=== PATIENT | male | born 1955 | race African-American/Black ===

== ENCOUNTER 2017-01-24 17:26 | Emergency (ER) | payer BC ==
[~2017-01-24 17:26] MED LIST: ASABAYER PO; AVODART PO; DENIES HOME MEDS; FLOMAX4 PO; GLUCPH PO; LEVAQUIN5T PO; MICRONASE2.5 MG PO; PRIN20 PO; PYR200 PO; ROXICET1 TAB PO
[2017-01-24 17:50] LABS: BASOPHILS 0.1 %; BASOPHILS ABSOLUTE 0.01 10/3/uL (0.0-0.16); EOSINOPHILS 0.1 %; EOSINOPHILS ABSOLUTE 0.01 10/3/uL (0.0-0.53); HEMATOCRIT 40.5 % (40.0-51.0); HEMOGLOBIN 14.2 g/dL (13.6-17.8); IMMATURE GRANULOCYTES 0.2 %; IMMATURE GRANULOCYTES ABSOLUTE 0.02 10/3/uL (0.0-0.11); LYMPHOCYTES 12.1 %; MEAN CORPUSCULAR HEMOGLOB 31.8 pg (26.0-34.0); MEAN CORPUSCULAR VOLUME 90.8 fL (80-100); MEAN PLATELET VOLUME 10.1 fL (9.2-13.0); MONOCYTES 5.4 %; MONOCYTES ABSOLUTE 0.49 10/3/uL (0.21-1.20); NEUTROPHILS 82.1 %; NEUTROPHILS ABSOLUTE 7.46 10/3/uL (2.02-8.40); PLATELET COUNT 279 10/3/uL (150-400); RBC DISTRIBUTION WIDTH 13.7 % (12.0-16.0); RED CELL COUNT 4.46 10/6/uL (4.7-6.1)
[2017-01-24 17:52] LABS: ER CBC TAT 0 Hrs 10 Mins; MANUAL DIFF NO %; MEAN CORPUS HGB CONC 35.1 g/dL (32.0-36.0); WHITE BLOOD CELLS 9.1 10/3/uL (4.5-10.5)
[2017-01-24 18:06] LABS: A/G RATIO 1.3 (0.7-1.9); ALBUMIN 4.1 G/DL (3.5-5.0); BUN (BLOOD UREA NITROGEN) 13 MG/DL (6-23); CALCIUM, SERUM 8.9 MG/DL (8.5-10.4); CHLORIDE, SERUM 105 MMOL/L (96-112); CO2 (CARBON DIOXIDE) 25 MMOL/L (24-34); CREATININE 1.08 MG/DL (0.70-1.30); GFR AFRICAN AMERICAN 84 ML/MIN (>=60); GFR NON AFRICAN AMERICAN 73 ML/MIN (>=60); GLOBULIN 3.1 G/DL (2.5-4.1); POTASSIUM, SERUM 3.9 MMOL/L (3.5-5.3); SGOT(AST) 9 U/L (5-40); SGPT(ALT) 23 U/L (5-65); SODIUM, SERUM 139 MMOL/L (135-148); TOTAL BILIRUBIN 0.5 MG/DL (0-1.2); TOTAL PROTEIN 7.2 G/DL (6.0-8.5)
[2017-01-24 18:07] LABS: ALKALINE PHOSPHATASE 124 U/L (45-117); GLUCOSE, SERUM 238 MG/DL (60-99)
[2017-01-24 19:53] LABS: DIRECT BILIRUBIN 0.1 MG/DL (0.0-0.4); INDIRECT BILIRUBIN(NOT ORDER) 0.4 MG/DL (0.1-0.9)
[2017-01-24 21:37] LABS: ASCORBIC ACID (UR NOT ORDER) NEG (NEG); BILIRUBIN, URINE NEGATIVE (NEG); ER URINALYSIS TAT 0 Hrs 12 Mins; KETONE, URINE TRACE MG/DL (NEG); LEUKOCYTE ESTERASE(NOT OR TRACE (NEG); NITRITE (URINE) NEG (NEG); WBC (NOT ORDERED) (RFLEX) 5 (0-5)
== END 2017-01-24 22:34 | disposition home or self-care (01) ==
LOC: ER 17:26
PROVIDERS: Hospitalist
DX: N20.0 Calculus of kidney (principal); E11.65 Type 2 diabetes mellitus with hyperglycemia; E78.00 Pure hypercholesterolemia, unspecified; N40.0 Benign prostatic hyperplasia without lower urinary tract symptoms; Z79.899 Other long term (current) drug therapy
CPT/HCPCS: 74176; 80053; 81001; 82248; 83690; 85025; 99284; A9270-GY

== ENCOUNTER 2017-02-05 10:58 | Inpatient (IN) | payer BC ==
--- NOTE | ~2017-02-05 | HP ---
History And Physical [address] [place] [place]. [address] NAME: THAD AHUMADA : 51 STATUS : ADM IN [facility]#: [id number] AGE: 61 ADM/REG DATE : 02/05/17 MR#: [id number] REPORT SERV DATE: 02/05/17 DICTATED BY: THAD JOSEPH DATE: 02/05/17 REPORT STATUS : Draft TRANSCRIBED BY: MODL DATE: 02/05/17 DATE OF ADMISSION: 02/05/2017 CHIEF COMPLAINT: Right flank pain, chills. HISTORY OF PRESENT ILLNESS: Mr. Ahumada is a 61-year-old diabetic, who presents to the [facility] Emergency Room a week or two ago with right flank pain. 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 He has chronic problems with BPH and takes Flomax and finasteride for these. His pain resolved. He denies problems with UTIs. He has been scheduled. He had been seen by Dr. Agarwal and a PCNL was recommended on the right. This morning right flank pain returned, this was severe and associated with chills. Covering for Dr. Agarwal, I instructed Mr. Ahumada to come to the hospital for admission. PAST MEDICAL HISTORY: Diabetes, hypertension. ALLERGIES: NONE KNOWN. MEDICATIONS: Atorvastatin, amlodipine, lisinopril, aspirin that has been held, metformin. SOCIAL HISTORY: Nonsmoker. REVIEW OF SYSTEMS: Positive for chills and right flank pain. No nausea or vomiting. PHYSICAL EXAMINATION: VITAL SIGNS: Vitals per intake sheet. GENERAL: A pleasant 61-year-old, in no acute distress. HEENT: Sclerae anicteric. LUNGS: Clear. HEART: Regular rate and rhythm. CHEST: Clear anteriorly. ABDOMEN: Soft, protuberant. No palpable mass. No rebound or guarding. Mild right CVA tenderness. Bladder is not distended. GENITAL: Exam is deferred. EXTREMITIES: No lower extremity edema. NEURO: He is oriented to person, place, time, and situation. LABS: Pending at time of dictation. No urine cultures to review. IMAGING: CT scan from 01/24/2017 was reviewed. There is a staghorn right lower pole calculus. No other stones. There is mild to moderate left hydronephrosis. IMPRESSION: 1. Right kidney stone. 2. Chills. History And Physical [address] [place]. [address] NAME: THAD AHUMADA : 51 STATUS : ADM IN PAT#: [id number] AGE: 61 ADM/REG DATE : 02/05/17 MR#: [id number] REPORT SERV DATE: 02/05/17 DICTATED BY: THAD JOSEPH DATE: 02/05/17 REPORT STATUS : Draft TRANSCRIBED BY: SAKSHI DATE: 02/05/17 PLAN: Mr. Ahumada's stone is large and symptomatic. Check a urine culture and lab work. He is holding his lisinopril and metformin. I will start him on Rocephin pending culture results. I plan to proceed with right nephrostomy tube placement tomorrow so long as coags are acceptable. If there is grossly purulent urine, then we will wait for infection to resolve. If the urine is not grossly purulent, then consider right PCNL this admission. I will return his care to Dr. Agarwal when he returns on 02/06/2017. [facility]/SAKSHI Thad Joseph M.D. / [id number] CC: Peng Burroughs NATHAN
--- NOTE | ~2017-02-05 | DS ---
Discharge Summary [facility] [address] [place]. [address] NAME: THAD AHUMADA : 51 STATUS : DIS IN PAT#: [id number] AGE: 61 ADM/REG DATE : 02/05/17 MR#: [id number] REPORT SERV DATE: 02/20/17 DICTATED BY: THAD JOSEPH DATE: 02/19/17 REPORT STATUS : Draft TRANSCRIBED BY: MODL DATE: 02/19/17 Data Collection from hospitalization DISCHARGE DIAGNOSIS(ES): 1. Right renal stone. 2. Hypertension. 3. Diabetes mellitus. CONSULTATIONS: Emery Agarwal M.D. PROCEDURES PERFORMED: 1. Right percutaneous nephrolithotomy with in situ laser lithotripsy, right antegrade ureteral stent placement, right nephrostogram, right nephrostomy tube exchange, 02/05/2017. 2. Nephrostomy, access right side, 02/06/2017. MEDICATIONS: Norvasc 5 mg daily; Flomax 0.4 mg every evening; Percocet 7.5/325 one every four hours as needed; Lipitor 40 mg daily; Cialis 5 mg daily as needed; Proscar 5 mg daily; Amaryl 2 mg daily; Prinivil 20 mg daily; aspirin 325 mg daily, began on 02/11/2017; Glucophage 1000 mg twice daily, began on 02/10/2017. CONDITION AT DISCHARGE: DISPOSITION: HOSPITAL COURSE: This 61-year-old diabetic presented to the emergency room a week or two ago with right flank pain. 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 He had chronic problems with BPH and takes Flomax and finasteride for these. His pain had resolved. He denied problems with UTIs. He had been seen by Dr. Agarwal, and a PCNL was recommended on the right. On the morning of admission, his right flank pain returned. This was severe and associated with chills. Covering for Dr. Agarwal, I instructed Mr. Ahumada to come to the hospital for admission. He was admitted for further evaluation and treatment. Upon admission to the hospital, he had been placed on Zofran 4 mg IV every 4 hours as needed, Rocephin 1 g IV daily. He was begun on a diabetic diet and had also been placed on morphine COLOR CORRECTOR for pain control. His metformin and lisinopril were placed on hold. He was also begun on level 1 sliding scale insulin for diabetes control. He was made n.p.o. after midnight in preparation for surgery. Following the day of admission, he had been taken to the operating room where he did undergo the above right percutaneous nephrolithotomy. He did tolerate this well and was transferred to the recovery room. He had also undergone nephrostomy access on the right side later that same day. He tolerated this well also. On postop day #1, he was afebrile, and his vital signs were stable. He did appear to be doing well and had no new complaints. He did remain in stable condition and had continued to do well. His only complaint was that of constipation, and he began laxatives and suppositories. COLOR CORRECTOR was discontinued, and as he continued to do well, he was then discharged on 02/09/2017 with the above instructions. Information collected by: Malissa Linda Discharge Summary [address] [address] NAME: THAD AHUMADA : 51 STATUS : DIS IN PAT#: [id number] AGE: 61 ADM/REG DATE : 02/05/17 MR#: [id number] REPORT SERV DATE: 02/20/17 DICTATED BY: THAD JOSEPH DATE: 02/19/17 REPORT STATUS : Draft TRANSCRIBED BY: SAKSHI DATE: 02/19/17 I submit the above information as my discharge summary. [facility]/SAKSHI Thad Joseph M.D. / [id number] CC: Peng Burroughs M.D.
--- NOTE | ~2017-02-05 | OP ---
Record Of Operation [facility] [address] [place]. [address] NAME: THAD ARROYO : 51 STATUS : ADM IN PAT#: [id number] AGE: 61 ADM/REG DATE : 02/05/17 MR#: [id number] REPORT SERV DATE: 02/08/17 DICTATED BY: EMERY ALBERTO DATE: 02/08/17 REPORT STATUS : Draft TRANSCRIBED BY: MODL DATE: 02/08/17 DATE OF PROCEDURE: 02/05/2017 PREOPERATIVE DIAGNOSIS: Right staghorn calculus greater than 2.5 cm. POSTOP DIAGNOSIS: Right staghorn calculus greater than 2.5 cm. PROCEDURE: Right percutaneous nephrolithotomy with in situ laser lithotripsy, right antegrade ureteral stent placement, right nephrostogram, right nephrostomy tube exchange. ANESTHESIA: General. ESTIMATED BLOOD LOSS: 50 mL. FLUID REPLACEMENT: Unknown. DRAINS: 1. A 6-Romanian 26 cm double-J right ureteral stent with the strings removed. 2. A 20-Romanian Plover style catheter as a right nephrostomy tube. 3. A 16-Romanian Alberto catheter per urethra. INDICATIONS: A 61-year-old male with a symptomatic staghorn calculus on the right side. TECHNIQUE: The patient was identified and brought to the operating room, administered general anesthetic agent by the Anesthesia, and intubated. A Alberto catheter was placed in the bladder under sterile condition. He was then laid in a prone position on the cystoscopy table. There is a right nephroureteral tube in place. The entire flank was prepped and draped in usual sterile fashion. An Amplatz 0.038 super-stiff wire was passed down the right nephroureteral tube and into the bladder under fluoroscopy and the nephroureteral tube was removed. I then advanced a Aurora exchange catheter over the wire. I removed the inner core and passed a second Amplatz super-stiff wire down the right ureter and into the bladder under fluoroscopy. One of these is kept as a safety wire and the other as a working wire. I made a 2 cm skin incision where the wires entered the flank. I then advanced a NephroMax nephrostomy tract balloon dilator over the working wire. I positioned the tip of it in the renal pelvis. I then inflated to 14 atmospheres and held it there for 5 minutes. After 5 minutes, I advanced the clear plastic sheath over the balloon and positioned the tip of the sheath in the renal pelvis. I then released the balloon removing it. I inserted the rigid nephroscope (I later go to long nephroscope for better clarity) down the nephrostomy tract. I entered the renal pelvis. The stone occupies most of the renal pelvis and most of the calyx of the lower half of the kidney. There was not much working room. I began with an ultrasonic lithotripter. It does very little to the stone. I then decided to go with the holmium laser. I initially selected a 360 fiber, but later switched to a 1000 micron fiber. Once I have the laser fiber, I turned it on to dusting mode and Record Of Operation [address] [place]. [address] NAME: THAD ARROYO : 51 STATUS : ADM IN PAT#: [id number] AGE: 61 ADM/REG DATE : 02/05/17 MR#: [id number] REPORT SERV DATE: 02/08/17 DICTATED BY: EMERY ALBERTO DATE: 02/08/17 REPORT STATUS : Draft TRANSCRIBED BY: SAKSHI DATE: 02/08/17 began breaking the stone up. I am able to successfully do this, but there was still very little space to work in. I went back to the ultrasonic lithotripter with the mechanical pneumatic lithotripter attachment and began to fragment the stone. I then extracted some of the fragments. This gives some working room. I then used a combination of ultrasonic lithotripter, pneumatic lithotripsy, and laser lithotripsy to clear the entire kidney of stone. Once I have him stone free, I back-loaded the rigid nephroscope on to other working wire. I advanced a 6-Romanian 26 cm right ureteral stent antegrade over the wire and into the bladder under fluoroscopy and positioned into the renal pelvis on direct vision. The strings and wire were removed. I removed the nephroscope. I placed a 20-Romanian Plover style catheter through the tract and into the renal pelvis. I removed the sheath and inflated 40 mL of sterile water into the catheter balloon. I then performed nephrostogram. The tip is well positioned in the renal pelvis and it fills easily, however, it does not drain well. I withdrew some of the fluid in the balloon and withdrew the catheter some and then repeated the steps. At this point, I am able to fill and drain the renal pelvis. There was some extravasation noted. I leave it to drainage and sutured into place with 2-0 Prolene. The patient returned to the supine position. Dressings were applied. He was awakened and taken to the recovery unit in a stable and satisfactory conditions. PF/MODL Emery Alberto M.D. / [id number] CC: Peng Burroughs NATHAN
[2017-02-05 12:14] LABS: BASOPHILS 0.1 %; BASOPHILS ABSOLUTE 0.01 10/3/uL (0.0-0.16); EOSINOPHILS 0.3 %; EOSINOPHILS ABSOLUTE 0.02 10/3/uL (0.0-0.53); HEMATOCRIT 42.4 % (40.0-51.0); HEMOGLOBIN 14.5 g/dL (13.6-17.8); IMMATURE GRANULOCYTES 0.1 %; IMMATURE GRANULOCYTES ABSOLUTE 0.01 10/3/uL (0.0-0.11); LYMPHOCYTES 15.7 %; MANUAL DIFF NO %; MEAN CORPUS HGB CONC 34.2 g/dL (32.0-36.0); MEAN CORPUSCULAR HEMOGLOB 31.6 pg (26.0-34.0); MEAN CORPUSCULAR VOLUME 92.4 fL (80-100); MONOCYTES ABSOLUTE 0.61 10/3/uL (0.21-1.20); NEUTROPHILS 75.8 %; NEUTROPHILS ABSOLUTE 5.79 10/3/uL (2.02-8.40); PLATELET COUNT 251 10/3/uL (150-400); RBC DISTRIBUTION WIDTH 13.5 % (12.0-16.0); RED CELL COUNT 4.59 10/6/uL (4.7-6.1); WHITE BLOOD CELLS 7.6 10/3/uL (4.5-10.5)
[2017-02-05 12:20] LABS: INTERNATIONAL NORMAL RATI 1.2 UNITS (-); PARTIAL THROMBO TIME 38.3 SEC (22.5-37.2); PROTIME (NOT ORD) 15.2 SEC (12.0-14.5)
[2017-02-05 12:26] LABS: BUN (BLOOD UREA NITROGEN) 13 MG/DL (6-23); CALCIUM, SERUM 9.6 MG/DL (8.5-10.4); CHLORIDE, SERUM 105 MMOL/L (96-112); CO2 (CARBON DIOXIDE) 28 MMOL/L (24-34); CREATININE 1.09 MG/DL (0.70-1.30); GFR AFRICAN AMERICAN 83 ML/MIN (>=60); GFR NON AFRICAN AMERICAN 72 ML/MIN (>=60); GLUCOSE, SERUM 258 MG/DL (60-99); POTASSIUM, SERUM 4.3 MMOL/L (3.5-5.3); SODIUM, SERUM 137 MMOL/L (135-148)
[2017-02-05] MEDS ORDERED: FLOMAX4 PO (12:55)
[2017-02-05] MEDS ORDERED: ZOFRAN4 PO (12:55)
[2017-02-05] MEDS ORDERED: PERCOCET 7.5/321 TAB PO (12:55)
[2017-02-05] MEDS ORDERED: NORV5 PO (12:56)
[2017-02-05] MEDS ORDERED: CIALIS5 MG PO (12:56)
[2017-02-05] MEDS ORDERED: LIPITOR40 PO (12:56)
[2017-02-05] MEDS ORDERED: PROSCAR5 PO (12:56)
[2017-02-05] MEDS ORDERED: PRIN20 PO (12:57)
[2017-02-05] MEDS ORDERED: ASA5GR PO (12:57)
[2017-02-05] MEDS ORDERED: GLUCOPHAGE1000 MG PO (12:57)
[2017-02-05] MEDS ORDERED: AMARYL2 PO (12:57)
[2017-02-05 13:39] LABS: WBC (NOT ORDERED) (RFLEX) 0 (0-5)
[2017-02-05 14:30] LABS: ASCORBIC ACID (UR NOT ORDER) NEG (NEG); BILIRUBIN, URINE NEGATIVE (NEG); KETONE, URINE TRACE MG/DL (NEG); LEUKOCYTE ESTERASE(NOT OR TRACE (NEG)
[2017-02-06 06:18] LABS: PFA (COL/EPI) 123 SEC (72-180)
[2017-02-08 07:06] LABS: BASOPHILS 0.1 %; BASOPHILS ABSOLUTE 0.01 10/3/uL (0.0-0.16); EOSINOPHILS 0.5 %; EOSINOPHILS ABSOLUTE 0.04 10/3/uL (0.0-0.53); HEMATOCRIT 42.4 % (40.0-51.0); HEMOGLOBIN 14.4 g/dL (13.6-17.8); IMMATURE GRANULOCYTES 0.5 %; IMMATURE GRANULOCYTES ABSOLUTE 0.04 10/3/uL (0.0-0.11); LYMPHOCYTES 22.4 %; LYMPHOCYTES ABSOLUTE 1.86 10/3/uL (0.67-4.30); MEAN CORPUSCULAR HEMOGLOB 31.6 pg (26.0-34.0); MEAN PLATELET VOLUME 9.8 fL (9.2-13.0); MONOCYTES ABSOLUTE 1.08 10/3/uL (0.21-1.20); NEUTROPHILS 63.5 %; NEUTROPHILS ABSOLUTE 5.28 10/3/uL (2.02-8.40); PLATELET COUNT 235 10/3/uL (150-400); RBC DISTRIBUTION WIDTH 13.3 % (12.0-16.0); RED CELL COUNT 4.56 10/6/uL (4.7-6.1); WHITE BLOOD CELLS 8.3 10/3/uL (4.5-10.5)
[2017-02-08 07:08] LABS: MANUAL DIFF NO %
[2017-02-08 07:20] LABS: BUN (BLOOD UREA NITROGEN) 12 MG/DL (6-23); CALCIUM, SERUM 9.2 MG/DL (8.5-10.4); CHLORIDE, SERUM 106 MMOL/L (96-112); CO2 (CARBON DIOXIDE) 27 MMOL/L (24-34); CREATININE 1.05 MG/DL (0.70-1.30); GFR AFRICAN AMERICAN 87 ML/MIN (>=60); GFR NON AFRICAN AMERICAN 75 ML/MIN (>=60); GLUCOSE, SERUM 224 MG/DL (60-99); POTASSIUM, SERUM 4.4 MMOL/L (3.5-5.3); SODIUM, SERUM 135 MMOL/L (135-148)
[2017-02-09] MEDS ORDERED: NORCO1 TA1 PO (16:01)
[2017-02-13 17:46] LABS: STONE COMPOSITION TWO DNR (())
== END 2017-02-09 16:24 | disposition home or self-care (01) | DRG 660 ==
LOC: 4SO 10:58
PROVIDERS: Urology
DX: N13.2 Hydronephrosis with renal and ureteral calculous obstruction (principal); I10 Essential (primary) hypertension; E11.9 Type 2 diabetes mellitus without complications; Z79.84 Long term (current) use of oral hypoglycemic drugs; Z79.82 Long term (current) use of aspirin; Z87.891 Personal history of nicotine dependence; K59.00 Constipation, unspecified; N40.0 Benign prostatic hyperplasia without lower urinary tract symptoms
CPT/HCPCS: 50432; 50433; 80048; 81001; 82365; 82962; 85025; 85576; 85610; 85730; 93005; A9270-GY; C1726; C1729; C1758; C1769; C1892; C1894; C2617; C2625; J0360; J1170; J2250; J2270; J2405; J2710; J3010; Q9967